=== PATIENT | female | born 1990 | race Caucasian/White ===

== ENCOUNTER 2019-05-17 18:41 | Emergency (ER) | payer MEDICAID ==
[~2019-05-17] VITALS: Ht 162.6 cm; Wt 63.5 kg
[2019-05-17 19:13] VITALS: BP 107/62
--- NOTE | 2019-05-17 19:43 | PHYS DOC ---
Past Medical History Past Medical History: No Pertinent History Past Surgical History: No Surgical History Alcohol Use: None Drug Use: None Adult General Chief Complaint Chief Complaint: LOWER EXT PAIN HPI HPI Patient is a 28 year old female who presents with right lower back pain that is sharp and shooting down the back of her right leg down to her foot for last 2 weeks. Patient states she's had this pain before for the past 3 years off and on. Patient denies any injury, abdominal pain, fall, vaginal bleeding or abnormal discharge. She is 24 weeks . Patient rates her pain a 10 out of 10 sitting and she goes to move or get up and is a 10 out of 10. Review of Systems Review of Systems Musculoskeletal:right low back pain radiating down back of leg to the foot. or joint pain [] All other systems were reviewed and found to be within normal limits, except as documented in this note. Allergies Allergies Allergies Coded Allergies Type Severity Reaction Last Updated Verified No Known Drug Allergies 05/17/19 No Physical Exam Physical Exam Constitutional: Well developed, well nourished, no acute distress, non-toxic appearance. [] Skin: Warm, dry, no erythema, no rash. [] Back: Right lower back tenderness, no CVA tenderness. [] Extremities: No tenderness, no cyanosis, no clubbing, ROM intact, no edema. [] Neurologic: Alert and oriented X 3, normal motor function, normal sensory function, no focal deficits noted. [] Psychologic: Affect normal, judgement normal, mood normal. [] Current Patient Data Vital Signs Vital Signs Date Time Temp Pulse Resp B/P (MAP) Pulse Ox O2 Delivery O2 Flow Rate FiO2 05/17/19 19:13 98.5 79 16 107/62 (77) 99 Room Air 98.5 EKG EKG [] Radiology/Procedures Radiology/Procedures [] Course & Med Decision Making Course & Med Decision Making Patient is a 28 year old female who presents with right lower back pain that is sharp and shooting down the back of her right leg down to her foot for last 2 weeks. Patient states she's had this pain before for the past 3 years off and on. Patient denies any injury, abdominal pain, fall, vaginal bleeding or abnormal discharge. She is 24 weeks . Patient rates her pain a 10 out of 10 sitting and she goes to move or get up and is a 10 out of 10. Alert and oriented. Ambulatory but it is painful. Patient has slight tenderness to the right lower back only. There is no bruising or deformity noted. No extremity swelling. Pedal pulses strong and present. Skin pink warm and dry. Speaks in full clear sentences. Patient denies any numbness or tingling or dysuria symptoms. Patient denies any medical or surgical history. Patient does smoke. Patient is told that since she is Tylenol and a heating pad would be the best thing to help. I will print off sciatica stretches education also for the patient. Dragon Disclaimer Dragon Disclaimer This electronic medical record was generated, in whole or in part, using a voice recognition dictation system. Departure Departure Impression: Primary Impression: Sciatica Disposition: HOME, SELF-CARE Condition: STABLE Referrals: NO PCP (PCP) Patient Instructions: Sciatica, Sciatica with [facility] Additional Instructions: Follow up with your primary care provider. Take Tylenol for pain and use heating pad. Problem Qualifiers Primary Impression: Sciatica Laterality: right Qualified Codes: M54.31 - Sciatica, right side CHARLI GALVEZ EVENT PLANNER May 17, 2019 19:43
== END 2019-05-17 19:46 | disposition home or self-care (01) ==
LOC: ER 18:41
DX: M54.41 Lumbago with sciatica, right side (principal)
CPT/HCPCS: 99281

== ENCOUNTER → 2020-07-27 | Emergency (ER) | payer MEDICAID ==
[~2020-07-27] VITALS: Ht 162.6 cm; Wt 59.0 kg
[2020-07-27 01:10] VITALS: BP 116/59
[2020-07-27 01:50] LABS: BASO # 0.1 x10^3/uL (0.0-0.2); BASO % 1 % (0-3); EOS # 0.1 x10^3/uL (0.0-0.7); EOS % 1 % (0-3); HEMATOCRIT 35.7 % (36.0-47.0); HEMOGLOBIN 12.2 g/dL (12.0-15.5); LYMPH # 2.8 x10^3/uL (1.0-4.8); LYMPH % 31 % (24-48); MEAN CORPUSCULAR HEMOGLOBIN 30 pg (25-35); MEAN CORPUSCULAR HGB CONC 34 g/dL (31-37); MEAN CORPUSCULAR VOLUME 89 fL (79-100); MONO # 0.6 x10^3/uL (0.0-1.1); MONO % 7 % (0-9); NEUT # 5.3 x10^3/uL (1.8-7.7); NEUT % 60 % (31-73); PLATELET COUNT 225 x10^3/uL (140-400); RED BLOOD COUNT 4.02 x10^6/uL (3.50-5.40); RED CELL DISTRIBUTION WIDTH 13.9 % (11.5-14.5); WHITE BLOOD COUNT 8.8 x10^3/uL (4.0-11.0)
[2020-07-27 01:58] LABS: CREATININE 0.4 mg/dL (0.6-1.0); GFR 187.4; POTASSIUM 3.5 mmol/L (3.5-5.1)
[2020-07-27 02:00] LABS: PREG TEST PT QUAL NEGATIVE (NEG)
[2020-07-27 02:01] LABS: PROTHROMBIN TIME PATIENT 13.2 SEC (11.7-14.0)
[2020-07-27 02:13] LABS: D-DIMER < 0.27 ug/mlFEU (0.00-0.50)
--- NOTE | 2020-07-27 02:18 | RAD ---
INDICATION: Reason: heavy vaginal bleeding; tubal removal earlier this month / Spl. Instructions: / History: COMPARISON: None. TECHNIQUE: Grayscale and color ultrasound images uterus and adnexa. FINDINGS: Uterus: 89 x 55 x 49 mm. Endometrial Stripe: 5 mm. Right Ovary: 29 x 30 x 14 mm. Left Ovary: 29 x 23 x 22 mm. Vascular flow identified to bilateral ovaries. Ovarian follicles are seen. At the lower uterine segment to cervical region there is a 73 x 33 mm ech ogenic structure IMPRESSION: * Centered near the cervical region there is a large echogenic structure identified. Some possible causes would include a blood clot within the region with a mass also within the differential. Would c orrelate with physical exam findings and if further imaging evaluation is desired a follow-up ultraso und could BE obtained to ensure that this does not increase in size. Another possible workup option w ould include pelvic MRI on a nonemergent basis. Electronically signed by: Jovan Hinson MD (07/27/2020 2:16 AM) [id number]
--- NOTE | 2020-07-27 02:36 | PHYS DOC ---
Past Medical History Past Medical History: Anxiety, MRSA Additional Past Medical Histor: bacterial vaginosis, substance abuse Past Surgical History: Tonsillectomy, Tubal ligation Smoking Status: Light Tobacco Smoker Additional Information: 2-3 cigs/day Alcohol Use: Rarely Drug Use: None General Adult EDM: Chief Complaint: VAGINAL BLEEDING HPI: HPI: 29 yo F presents to the ed with c/o heavy vaginal bleeding "I've gone through 2 towels" since 11pm tonight that started after patient had sexual intercourse, associated nausea. Patient denies any specific dyspareunia or rough intercourse that triggered the onset of her pain. Vaginal bleeding did not start during intercourse, but within hours following. Her LMP was June 22. Reports she had a tubal ligation, "they removed my tubes," at [facility] on July 11 and was told she could have intercourse 2 weeks after this. History of pelvic blood clot and was on Coumadin-has not been on AC for "years." Denies any history of anemia, blood or platelet transfusions, heavy periods or po stoperative bleeding. Review of Systems: Review of Systems: Constitutional: Denies fever or chills. [] Eyes: Denies change in visual acuity. [] HENT: Denies nasal congestion or sore throat. [] Respiratory: Denies cough or shortness of breath. [] Cardiovascular: Denies chest pain or edema. [] GI: Denies vomiting, bloody stools or diarrhea. [] : Denies dysuria. [] Musculoskeletal: Denies back pain or joint pain. [] Integument: Denies rash. [] Neurologic: Denies headache, focal weakness or sensory changes. [] Endocrine: Denies polyuria or polydipsia. [] Lymphatic: Denies swollen glands. [] Psychiatric: Denies depression or anxiety. [] Heart Score: Risk Factors: Risk Factors: DM, Current or recent (<one month) smoker, HTN, HLP, family history of CAD, obesity. Risk Scores: Score 0 - 3: 2.5% MACE over next 6 weeks - Discharge Home Score 4 - 6: 20.3% MACE over next 6 weeks - Admit for Clinical Observation Score 7 - 10: 72.7% MACE over next 6 weeks - Early Invasive Strategies Allergies: Allergies: Allergies Coded Allergies Type Severity Reaction Last Updated Verified enoxaparin Allergy Intermediate 07/27/20 Yes tramadol Allergy Intermediate 07/27/20 Yes Physical Exam: PE: Constitutional: thin, well nourished, nontoxic appearing, cannot appreciate aob HENT: Normocephalic, atraumatic, Eyes: EOMI, conjunctiva normal, no discharge. Neck: Normal range of motion, supple, Cardiovascular: S1/2 present, regular rhythm Lungs & Thorax: Speaking in full sentences, bilateral equal chest rise, no tachypnea or increased work of breathing Abdomen: soft, no tenderness, Skin: Warm, dry, no erythema, no rash. [] Back: No tenderness, no CVA tenderness. [] Extremities: No tenderness, no cyanosis, no LE edema Neurologic: Alert and oriented X 3, normal motor function, normal sensory function, no focal deficits noted, steady gait, no ataxia Psychologic: very anxious, splitting behavior-easily defensive/distrustful Pelvic: Chaperoned by RN, external genitalia normal w/ vaginal bleeding, I had started to remove blood clots/blood in vaginal vault-I requested her to bear down to assist, I was unable to view cervix due to pt refusing further exam/pain, pt very emotional/tearful with active anxiety regarding her bleeding requiring verbal redirection multiple times Current Patient Data: Labs: Laboratory Tests Test 07/27/20 01:40 White Blood Count 8.8 x10^3/uL (4.0-11.0) Red Blood Count 4.02 x10^6/uL (3.50-5.40) Hemoglobin 12.2 g/dL (12.0-15.5) Hematocrit 35.7 % (36.0-47.0) L Mean Corpuscular Volume 89 fL (79-100) Mean Corpuscular Hemoglobin 30 pg (25-35) Mean Corpuscular Hemoglobin Concent 34 g/dL (31-37) Red Cell Distribution Width 13.9 % (11.5-14.5) Platelet Count 225 x10^3/uL (140-400) Neutrophils (%) (Auto) 60 % (31-73) Lymphocytes (%) (Auto) 31 % (24-48) Monocytes (%) (Auto) 7 % (0-9) Eosinophils (%) (Auto) 1 % (0-3) Basophils (%) (Auto) 1 % (0-3) Neutrophils # (Auto) 5.3 x10^3/uL (1.8-7.7) Lymphocytes # (Auto) 2.8 x10^3/uL (1.0-4.8) Monocytes # (Auto) 0.6 x10^3/uL (0.0-1.1) Eosinophils # (Auto) 0.1 x10^3/uL (0.0-0.7) Basophils # (Auto) 0.1 x10^3/uL (0.0-0.2) Prothrombin Time 13.2 SEC (11.7-14.0) Prothrombin Time INR 1.0 (0.8-1.1) Activated Partial Thromboplast Time 26 SEC (24-38) Fibrinogen 276 mg/dL (200-440) D-Dimer (Kami) < 0.27 ug/mlFEU Sodium Level 143 mmol/L (136-145) Potassium Level 3.5 mmol/L (3.5-5.1) Chloride Level 107 mmol/L (98-107) Carbon Dioxide Level 22 mmol/L (21-32) Anion Gap 14 (6-14) Blood Urea Nitrogen 13 mg/dL (7-20) Creatinine 0.4 mg/dL (0.6-1.0) L Estimated GFR (Cockcroft-Gault) 187.4 Glucose Level 94 mg/dL (70-99) Calcium Level 9.0 mg/dL (8.5-10.1) Serum Test, Qualitative Negative (NEG) Ethyl Alcohol Level 139 mg/dL (0-10) H Laboratory Tests 07/27/20 01:40 Laboratory Tests 07/27/20 01:40 Vital Signs: Vital Signs Date Time Temp Pulse Resp B/P (MAP) Pulse Ox O2 Delivery O2 Flow Rate FiO2 07/27/20 01:10 98.0 75 20 116/59 (78) 99 Room Air 98.0 EKG: EKG: [] Radiology/Procedures: Radiology/Procedures: IMAGING REPORT Signed PATIENT: JADA MONTAÑO AACCOUNT: [id number] : 1990 LOCATION: ER AGE: 29 SEX: F EXAM STATUS: PRE ER ORD. PHYSICIAN: VOHS,TEA M DO REASON: heavy vaginal bleeding; tubal removal earlier this month PROCEDURE: PELVIS COMPLETE INDICATION: Reason: heavy vaginal bleeding; tubal removal earlier this month / Spl. Instructions: / History: COMPARISON: None. TECHNIQUE: Grayscale and color ultrasound images uterus and adnexa. FINDINGS: Uterus: 89 x 55 x 49 mm. Endometrial Stripe: 5 mm. Right Ovary: 29 x 30 x 14 mm. Left Ovary: 29 x 23 x 22 mm. Vascular flow identified to bilateral ovaries. Ovarian follicles are seen. At the lower uterine segment to cervical region there is a 73 x 33 mm echogenic structure IMPRESSION: * Centered near the cervical region there is a large echogenic structure identified. Some possible causes would include a blood clot within the region with a mass also within the differential. Would correlate with physical exam findings and if further imaging evaluation is desired a follow-up ultrasound could BE obtained to ensure that this does not increase in size. Another possible workup option would include pelvic MRI on a nonemergent basis. Electronically signed by: Prem Hinson MD (07/27/2020 2:16 AM) DESKTOP- [id number] DICTATED and SIGNED BY: PREM HINSON MD DATE: 07/27/20 [id number] 0 Course & Med Decision Making: Course & Med Decision Making Pertinent Labs and Imaging studies reviewed. (See chart for details) Concern for vaginal bleeding s/p 2.5 weeks after a tubal ligation, after patient had nonforceful/atraumatic sexual intercourse. I reviewed transabdominal ultrasound while being performed. Patient educated that we needed to repeat her vaginal exam to locate source of bleeding (cervical os? vaginal wall tear?). Plan was to repeat her vaginal exam, cbc and consider obgyn consultation. Upon asking patient when her last menstrual period was, patient became very defensive after suggesting possibility of menses. Pt reported "there's no way this could be a period, mine are never this heavy, you don't know what you're doing." I again repeated to her that her pelvic exam was not sufficient to confirm/deny menses, that I still needed to do another pelvic exam to rule out hemorrhage or DIC. That these conditions are life threatening, and that while her labs are borderline for anemia, she has normal vital signs, she was not medically cleared from any life-threatening condition and her vital signs could worsen, she could deteriorate, pass out and/or .. Pt admitted she had "a few drinks," but had a steady gait and GCS15. Pt pulled out her IV and demanded to be discharged. Pt would not wait for any discharged instructions/followup information. The patient has decided to leave our facility against medical advice. I have assessed patient's ability to make informed decision and feel the patient has the capacity to comprehend information regarding the current medical condition and appreciates the impact of the disease or condition and the consequences of various options for treatment, including foregoing treatment. The patient possesses the ability to evaluate all treatment options, comparing the risks and benefits of each option, communicate his or her choice in a consistent manner over time, and is able to make rational choices. I explained to the patient further testing, treatment, and evaluation I would like to perform in the emergency department visit as well as any possible alternatives that can be accomplished in a timely manner. I have outlined the possible risks of foregoing any or all of these interventions and the patient understands and acknowledges that the decision to leave may result in undesirable consequences such as , permanent disability, and/or loss of current lifestyle. Even though leaving AMA is not ideal, I have instructed the patient to follow any discharge instructions given, take any medications prescribed, and resume care as soon as possible with another provider. This conversation was witnessed by another member of the emergency department staff and we clearly communicated the patient is welcome to return anytime to continue care at our facility. Sofy Disclaimer: Sofy Disclaimer: This electronic medical record was generated, in whole or in part, using a voice recognition dictation system. Departure Departure Impression: Primary Impression: Vaginal bleeding Additional Impression: Alcohol intoxication Disposition: 07 AMA/ELOPED/LWBS Condition: STABLE Referrals: NO PCP (PCP) TEA TURNER DO Jul 27, 2020 02:36
== END ==
LOC: ER 00:23
DX: N93.9 Abnormal uterine and vaginal bleeding, unspecified (principal); Z93.9 Artificial opening status, unspecified; R11.0 Nausea; F17.210 Nicotine dependence, cigarettes, uncomplicated; Z86.14 Personal history of Methicillin resistant Staphylococcus aureus infection; Z79.01 Long term (current) use of anticoagulants; Z88.6 Allergy status to analgesic agent; Z88.8 Allergy status to other drugs, medicaments and biological substances
CPT/HCPCS: 36415; 76856; 80048; 84703; 85025; 85379; 85384; 85610; 85730; 99284; G0480